=== PATIENT | male | born 1940 | race Caucasian/White ===

== ENCOUNTER → 2023-12-07 13:55 | Outpatient (REF) | payer MEDICARE, OTHER, SELFPAY | LOC: RCS 13:55 | PROVIDERS: ATTENDING PHYSICIAN Nuclear Medicine Nuclear Cardiology; FAMILY PHYSICIAN Family Medicine | DX: I49.3 Ventricular premature depolarization (principal); R55 Syncope and collapse | CPT/HCPCS: 93306 ==

== ENCOUNTER 2024-10-30 16:34 | Day surgery (SDC) | payer MEDICARE, OTHER, SELFPAY ==
[2024-10-30] VITALS (11 sets, daily range): BP systolic 166–194; BP diastolic 64–100; BMI 29.8
--- NOTE | 2024-10-30 15:33 | CON.CAR ---
Addendum entered and electronically signed by Ruddy Leone MD 10/30/24 15:54:
Patient seen, interviewed and examined by me.
I met with the patient and his .
He has been describing several months of progressively worsened fatigue. 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
correlating to his symptoms. He has no reversible cause for his symptomatic heart block.
Well-appearing, no acute distress while lying in stretcher in the emergency department
Bradycardic, regular rate and rhythm with normal S1 and S2, no S3 no S4. There is a grade 1/6 apical holosystolic murmur and no rubs. PMI is normally placed.
Lungs are clear to auscultation bilaterally without wheezes rales or rhonchi.
Abdomen soft nontender nondistended with normoactive bowel sounds
Extremities show trace pretibial edema bilaterally no clubbing or cyanosis.
Neurologic exam is grossly nonfocal.
Echo 12/07/2023: EF 60 to 65%, mild concentric LVH, trace TR, PAP 32 mmHg
ECG from today demonstrates sinus rhythm with type second-degree AV block and 2-1 AV conduction with a ventricular rate of 44 bpm
He has symptomatic high-grade AV block in the form of second-degree as well as third-degree (complete) heart block with no reversible cause.
I recommended implantation of dual-chamber permanent pacemaker
He is right-handed so I recommended implantation on the nondominant side, the left
I explained the procedure in detail including possible risks and expected postprocedural course and the expected lifestyle/activity restrictions
All of his questions and his 's questions have been answered. Informed consent obtained by me.
Original Note:
Consultation
Consultation Request
Date/Time Consultation Performed: 10/30/24
Performing Provider: Omaira Barnett PA-C for Dr. Harsh Leone
Reason for Consultation: complete heart block
Medical History
-
Chief Complaint: complete heart block
History of Present Illness:
Patient is an 83 yo M with PMH hypertension, hyperlipidemia, history of syncope who was referred to see cardiology by PCP due to 3 to 4 months of noting low heart rates. EKG in the office on 10/28 showed Mobitz type II heart block with heart rate of
40. He reports associated fatigue. He denies shortness of breath, chest pain, lightheadedness or syncope. A rhythm star monitor was placed at office visit 10/28 and we received notification that patient was having complete heart block and therefore
was referred to the ER for admission and pacemaker placement. He reports he last ate around 11 AM. He is not on blood thinners, just takes a baby aspirin. At his office visit 10/28 Nebivolol was stopped and his outpatient amlodipine was increased.
PMH:
HTN
HLD
History of syncope
Past Medical History
Past Medical History: Other (in HPI)
Social History
Tobacco: Non-Smoker
Alcohol: None
Personal:
Living: With Family
Employment: Retired
Family History
Family History: Reviewed & Not Pertinent
Allergies / Home Medications
Allergy/AdvReac Type Severity Reaction Status Date / Time
No Known Allergies Allergy Verified 10/30/24 15:21
Review of Systems
-
History Source: Patient and Family
All other systems: Negative unless noted
Physical Exam
Vital Signs
Temp Pulse Resp BP Pulse Ox
98.6 F 44 15 168/64 97
10/30/24 14:46 10/30/24 15:15 10/30/24 15:15 10/30/24 15:13 10/30/24 15:15
Physical Exam
General: No Apparent Distress and Comfortable
HEENT: Normocephalic, Anicteric and Moist Mucous Membranes
Respiratory: Clear and Non Labored Respirations
Cardiac: S1/S2, Regular Rhythm and Other (bradycardic)
GI: Soft, Non Tender, Non Distended and Normal Bowel Sounds
Musculoskeletal: No Clubbing, No Cyanosis and Edema (1+ of B/L LE)
Skin: Warm and Dry
Neuro: AO x 3
Impression / Plan
-
Primary Scrap Picker: Dr. Orellana
Assessment:
Fatigue
CHB on rhythm star monitor
Bradycardia for last 3 to 4 months
HTN
HLD
History of syncope
Echo 12/07/2023: EF 60 to 65%, mild concentric LVH, trace TR, PAP 32 mmHg
Plan:
- Patient presents to ER upon referral from cardiology office after noted to have complete heart block on rhythmstar monitor placed on 10/28/2024
- EKG on arrival to ER with complete heart block
- Awaiting labs
- Last ate around 11 AM
- Not on AV mary blocking agents, Nebivolol stopped 10/28 at office visit
- Last echo from 2023 as above
- Plan for pacemaker today if lab can accommodate
- Discussed procedure with patient and at bedside
- Discussed with nursing
Data Reviewed
-
EKG: Tracing Personally Visualized and interpreted
Medical Tests (Nuc Med, Echo etc): Report Reviewed by me
Labs: Labs Reviewed by me
Old Records: Reviewed
--- NOTE | 2024-10-30 15:41 | ED.GENMED ---
History of Present Illness
General
Chief Complaint: Heart Rate Problem
Source: patient and spouse
Time Seen by Provider: 10/30/24 15:19
History of Present Illness
History of Present Illness:
This patient is an 83-year-old male who presents emergency department because he was advised to by his bariatric nurse and told he is going to get a pacemaker. Patient states that in July 10 saw his primary he was noted to be bradycardic. He has had
repeat visited to his primary in regards to this bradycardia and after medication changes was noted to still be bradycardic which prompted his consultation to cardiology. He states that he had a monitor placed 2 days ago and today was contacted by
the office and referred to the ER. Patient states he feels 'fine'. His only symptom is that if he leans forward and then stands up he will get briefly lightheaded. He denies chest pain, dyspnea, fever, chills, nausea, vomiting, back pain, neck
pain, headache, onmz-qmz-[id number] medications, new medications, or other complaints. 1 other symptom patient does report for the last few months is the occasional sensation of 'hot flashes' lasting less than a minute or 2 without associated symptoms.
Past History
Past History
ED Past Medical History: HTN and Hypercholesterolemia
ED Past Surgical History: Appendectomy
Social History
Tobacco: Non-smoker
Alcohol: Occasional
Drug: None
Personal:
Living: with family
Employment: Retired
Family History
Family History: Negative Other (Noncontributory)
Phy Exam
Physical Exam
Physical Exam:
GENERAL: Alert , in no apparent distress
EYE: pupils equal and reactive
NECK: Supple, no significant adenopathy.
ENT: o/p clr, mmm.
CARDIAC: Regular rate and rhythm .
LUNGS: Clear breath sounds bilaterally, no acute respiratory distress, no wheezes/rales/rhonchi
ABDOMEN: Soft, without focal tenderness, no r/g, no cvat
NEUROLOGICAL: Alert and oriented, no focal neuro deficits
SKIN: Warm and dry, skin intact.
MUSCULOSKELETAL: No edema, well perfused.
PSYCH: Normal and appropriate interaction.
Course
Orders/Labs/Results
Orders:
Orders
10/30/24 14:45
EKG [Electrocardiogram (*1)] Urgent
Reason for Study: Bradycardia / Tachycardia
EKG- Treatment ONCE
10/30/24 15:29
Fentanyl Citrate/Pf [Sublimaze] 25 mcg IV [id number] PRN
HYDROmorphone [Dilaudid] 0.25 mg IV [id number] PRN
HYDROmorphone [Dilaudid] 0.5 mg IV PACU-Q5MPRN PRN
Ondansetron Injectable [Zofran] 4 mg IV PACU-ONCEPRN PRN
Prochlorperazine [Compazine] 5 mg IV PACU-ONCEPRN PRN
Notify MD As Directed
Notify physician if: for SDS patients with known or suspected sleep obstructive sleep apnea, monitor in the
PACU.
Notify MD for any apneic/desaturation episodes
O2 Therapy [RESP] Urgent
Titrate/Wean O2 to maintain O2 sat greater than (%): 92
Special Instructions: -Provide supplemental oxygen to achieve O2 sat of 92% or greater.
-After 15 min, may wean O2 and discontinue if patient is able to maintain O2 sat of 92%
or greater during recovery period.
If patient is a discharge home, without oxygen therapy, notify anestheiologist if
unable to maintain O2 SAT of 92% or greater on room air for MD clearance.
10/30/24 15:30
Normosol (Mult Electrolytes) [Normosol-R/Plasmalyte-A] 1,000 ml IV PER PROTOCOL
10/30/24 15:38
Fentanyl Citrate/Pf [Sublimaze] 100 mcg .ROUTE .STK-MED ONE
Midazolam HCl [Versed] 2 mg .ROUTE .STK-MED ONE
10/30/24 15:39
CeFAZolin 1 GRAM [Ancef] 1 gram 0.9% Sod Chloride 250 ml Irr [Nss Irrigation Bottle] 250 ml IRRIG CATH
CeFAZolin 2 GRAM [Ancef] 2 grams in 10 ml IV CATH
10/30/24 15:41
Basic Metabolic Panel Urgent
Complete Blood Count/With Diff Urgent
TSH Urgent
Vital Signs
Initial and Last Documented VS:
Initial Vital Signs
Temp Pulse Resp BP Pulse Ox
98.6 F 44 16 184/77 96
10/30/24 14:46 10/30/24 14:46 10/30/24 14:46 10/30/24 14:46 10/30/24 14:46
Last Documented Vital Signs
Temp Pulse Resp BP Pulse Ox
98.6 F 44 15 168/64 97
10/30/24 14:46 10/30/24 15:15 10/30/24 15:15 10/30/24 15:13 10/30/24 15:15
*Pulse Oximetry
SaO2: 97
Oxygen Mode of Delivery: Room air
Update Note
Update Note:
Patient presents to the Emergency Department with ____reported bradycardia
Number and Complexity of Problems Addressed at the Encounter
� Chronic conditions affecting care:
� Acute Exacerbation and/or Progression of Chronic Illness:
� Differential Diagnosis includes: But not limited to medication related effects, hypothyroidism, electrolyte disorder, heart block, etc. etc.
Amount and/or Complexity of Data to be Reviewed and Analyzed
� I performed an independent evaluation of and my interpretation is:
EKG:read by me, 3rd degree heart block with narrow qrs, no acdute ischemia
CT:
Xrays:
Laboratory Studies:
Other:
� Review of other/old records reveals:
� Clinical information was obtained by an independent historian:
� Prescriptions/Medications Considered but not given:
� Further testing considered but not performed:
Risk of Complications and/or Morbidity or Mortality of Patient Management
� Social determinants of health affecting care:
� Discussion with other providers (PCP, Hospitalists, Consultants, etc):
� Escalation of care including admission/observation vs risk of discharge considered: 3:44 PM patient has been seen by cardiology in consultation and plans are for patient to proceed to the catheterization lab for pacer placement
EARLE. Patient remains asymptomatic with stable blood pressure. Will observe closely
ED Attending Note
-
Portions of this chart may have been created with voice recognition software.� Occasional wrong word or��sound alike� substitutions may have occurred due to the inherent limitations of voice recognition software.
Discharge Plan
Departure
Patient Disposition: PORT PATROL OFFICER
Date of Disposition: 10/30/24
Time of Disposition: 15:44
Admit to: CV[facility] and electrical laboratory technician
Admit to doctor: braydon
Referrals:
Shari Arce MD [Family Provider, Family Practice]
Interventions
Interventions:
*Risk Screen - Suicide Last Done: 10/30/24 14:46
*General Assessment Last Done: 10/30/24 15:38
*Neglect/Abuse Screening Last Done: 10/30/24 14:46
*ED- Fall Risk Assessment Last Done: 10/30/24 15:38
*ED COVID-19 Vaccine History Last Done: 10/30/24 15:38
Discharge Date and Time
Print Language: CHINESE
[2024-10-30 15:57] LABS: Hematocrit 45.5 % (39.0-52.0); Hemoglobin 15.4 g/dL (13.0-18.0); Mean Corp Hgb Conc. 33.8 g/dL (33.0-37.0); Mean Corpuscular Volume 87.5 fL (80.0-94.0); Nucleated Red Blood Cells % 0 % (-); Platelet Count 207 10^3/uL (130-400); Red Cell Dist. Width 14.1 % (11.5-14.5)
--- NOTE | 2024-10-30 16:00 | ITS.CL.PACE ---
Property Manager - Pacemaker Implant
Pacemaker Implant
Procedure Report:
PACEMAKER IMPLANT REPORT
Primary Care Provider: Dr Shari Arce
Primary carbon paper coating machine setter: Dr Bari Orellana
Date of Procedure: October 30, 2024
Procedure:
Implantation of dual-chamber permanent pacemaker utilizing the left bundle branch for conduction system pacing
Indication/Diagnosis:
Non-reversible symptomatic (progressive fatigue) bradycardia due to second degree and third degree atrioventricular block
After informed consent was obtained, 'time out' was called and confirmed, the patient was prepped and draped in a sterile fashion. Lidocaine with epi was used for local anesthesia. Central venous access was obtained via subclavian venipuncture. An
incision was made along the left chest and a pre-pectoral pocket was formed. Using a Seldinger technique and peel-away sheaths, the pacing leads were placed under fluoroscopic guidance.
Fluoroscopy was used to determine likely anatomic site for left bundle branch pacing. The TapFundertronic C315 sheath was used to deliver the Medtronic 3830 Selectsecure pacing lead with the helix exposed just exposed from the sheath tip during continuous
monitoring when pacemapping the septum during gentle clockwise rotation to obtain a paced QRS morphology of a W pattern in lead V1. Once the suspected optimal site was identified, lead deployment was performed with several rapid rotations as paced
QRS morphology was intermittently monitored until a paced QRS complex in lead V1 demonstrated development of an R wave [ ] (qR or rSR).
Unipolar pacing impedance dropped by approximately 100 ohms suggesting it had reached the left ventricular subendocardial.
Stable VEgm injury current is present throughout final lead position including at end of case, suggesting there was no perforation through the septum into the LV cavity.
Unipolar pacing impedance is 1000 Ohms
Unipolar pacing threshold is stable at 1 V @ 0.4 ms.
Final conduction system paced QRS complex duration is 120 ms
LVAT is 93 ms and peak V5 -> peak V1 timing is 40 ms
There is QRS transition to LVSP / selective LBBP during threshold testing
Right atrial lead was placed at the RAA.
Once testing (see below) showed adequate and stable function, the leads were secured using the suture sleeves. The pocket was liberally irrigated with antibiotic solution. The leads were connected to the generator header and the leads and
generator were placed within the pocket. Fluoroscopy confirmed stable lead position. The pocket was closed in the typical fashion.
IMPLANTS:
Medtronic [id number], SN: [id number], Left Pectoral
RA: Medtronic 5076-45, SN: [id number], RAA
Left Bundle: Medtronic 3830 , SN:[id number], Interventricular septum at LBB
DEVICE TESTING:
Sensing: RA 2.3 mV, RV 9 mV
Capture: RA 0.7 V@0.4ms, RV 0.5 V@0.4ms (bipolar)
Ohms: RA 722, RV 694 (bipolar)
FINAL PROGRAMMING
Nicola Pacing: DDDR 60-130 ppm
COMPLICATIONS:
None
CONCLUSIONS:
1: Successful implant of dual chamber permanent pacemaker utilizing Left Bundle Branch conduction system capture for ventricular resynchronization pacing.
RECOMMENDATIONS:
1. Post-op care (tele, CXR, IV abx)
2. In-Office wound check in 5-7 days
Copy to:
Dr Shari Arce
Dr Bari Orellana
[2024-10-30 16:12] LABS: Blood Urea Nitrogen 22 mg/dl (9-20); Calcium 9.0 mg/dl (8.4-10.2); Carbon Dioxide 27 mmol/L (22-30); Chloride 110 mmol/L (98-107); Estimated Creatinine Clearance 64 ml/min; Glucose 116 mg/dl (70-99); Potassium 4.7 mmol/L (3.5-5.1); Sodium 144 mmol/L (135-145); eGFR > 60.00
[2024-10-30 16:42] LABS: TSH 2.09 uIU/ml (0.47-4.68)
--- NOTE | 2024-10-30 19:22 | PTCARENOTE ---
Patient admitted from PACU at 1800 after PPM implant. Pressure dressing is dry and intact left upper chest, with immobilizer in place. Patient had to urgently urinate upon admission to the floor and assisted with the urinal. BP elevated and patient
flustered with urge to void. Passed 250ml clear yellow urine. Monitoring VS, post EKG done and admission assessment completed. Patient's at the bedside, call hernández in reach.
[2024-10-30] MEDS: NORVASC 5 MG PO (19:53)
[2024-10-30] MEDS: ANCEF 5 IV (20:39)
[2024-10-30] MEDS: TYLENOL 650 MG PO (20:39)
[2024-10-31 03:40] VITALS: BP 178/78
[2024-10-31 03:42] VITALS: BP 187/72
[2024-10-31] MEDS: NORCO 5/325 1 TABLET PO (03:44)
[2024-10-31 04:09] LABS: Hematocrit 45.1 % (39.0-52.0); Hemoglobin 15.6 g/dL (13.0-18.0); Mean Corp Hgb Conc. 34.6 g/dL (33.0-37.0); Mean Corpuscular Volume 87.2 fL (80.0-94.0); Platelet Count 186 10^3/uL (130-400); Red Cell Dist. Width 13.8 % (11.5-14.5)
[2024-10-31 04:34] LABS: Blood Urea Nitrogen 15 mg/dl (9-20); Calcium 8.8 mg/dl (8.4-10.2); Carbon Dioxide 22 mmol/L (22-30); Chloride 111 mmol/L (98-107); Estimated Creatinine Clearance 83 ml/min; Glucose 115 mg/dl (70-99); Magnesium 2.2 mg/dl (1.6-2.3); Potassium 3.6 mmol/L (3.5-5.1); Sodium 140 mmol/L (135-145); eGFR > 60.00
--- NOTE | 2024-10-31 04:35 | PTCARENOTE ---
Pt AV paced on monitor, c/o surgical site left chest mild pain. PRN meds given. Dsg CDI. Pt ambulates with assist x 1.
[2024-10-31] MEDS: ANCEF 5 IV (05:14)
[2024-10-31 05:22] VITALS: BMI 29.5
[2024-10-31 07:49] VITALS: BP 180/75
[2024-10-31] MEDS: NORVASC 5 MG PO (08:27)
[2024-10-31] MEDS: ORETIC 25 MG PO (08:27)
[2024-10-31] MEDS: ZESTRIL 40 MG PO (08:27)
[2024-10-31] MEDS: PRAVACHOL 40 MG PO (08:27)
[2024-10-31] MEDS: ASPIR LOW (ENTERIC COATED) 81 MG PO (08:27)
--- NOTE | 2024-10-31 09:22 | CM ---
Reviewed chart. Met with Mr. Alexis to review discharge plans. He states prior to admission he resides with his spouse in a one story home with five steps. He states prior to admission he was independent with ambulation and adls. He state he
does not have any DME in the home. He states his spouse uses a walker. He states he has a prescription plan with [employer] and some times uses [facility]. The discharge plan is to return home with his spouse when medically stable.
--- NOTE | 2024-10-31 09:50 | W.PN.CARDCBS ---
Today's Communication / Plan
-
post DC PPM
BP elevated, resume home meds, will keep log and bring to inc check apt
home today
Impression / Plan
-
Primary care physician: Shari Arce MD
Primary Underwriter Mortgage Loan: Dr. Orellana
Assessment:
Fatigue
CHB on rhythm star monitor
Bradycardia for last 3 to 4 months
HTN
HLD
History of syncope
Echo 12/07/2023: EF 60 to 65%, mild concentric LVH, trace TR, PAP 32 mmHg
Plan:
Post DC PPM Medtronic 10/31/24
tele AsVpaced
CXR no PTX, leads in good position
site stable
BP elevated, continue HCTZ, lisinopril and amlodipine, will monitor at home and bring log to f/u apt
He may need another BP agent added for better BP control
Limit use of celebrex for next week to prevent pocket HT
Activity restrictions reviewed
Incision check 1 week
home today
Progress Note - Underwriter Mortgage Loan
Subjective
Date of Service: October 31, 2024
mild inc pain, no sob
Objective
Labs:
10/31/24 03:49
10/31/24 03:49
Labs
Hgb 15.6 g/dL (13.0-18.0) 10/31/24 03:49
Hct 45.1 % (39.0-52.0) 10/31/24 03:49
Plt Count 186 10^3/uL (130-400) 10/31/24 03:49
Sodium 140 mmol/L (135-145) 10/31/24 03:49
Potassium 3.6 mmol/L (3.5-5.1) 10/31/24 03:49
BUN 15 mg/dl (9-20) 10/31/24 03:49
Creatinine 0.7 mg/dL (0.7-1.3) 10/31/24 03:49
Glucose 115 mg/dl (70-99) H 10/31/24 03:49
Vital Signs and I&O:
Vital Signs
Temp Pulse Resp BP Pulse Ox
98.5 F 72 18 180/75 98
10/31/24 07:46 10/31/24 08:15 10/31/24 07:46 10/31/24 07:49 10/31/24 07:46
Vital Signs
Temp Pulse Resp BP Pulse Ox
98.5 F 72 18 180/75 98
10/31/24 07:46 10/31/24 08:15 10/31/24 07:46 10/31/24 07:49 10/31/24 07:46
Intake & Output
10/29/24 10/30/24 10/31/24 11/01/24
06:59 06:59 06:59 06:59
Intake Total 200 / 200
Output Total 1100 / 1100
Balance -900 / -900
Physical Exam
Physical Exam
NAD, AOX3
S1, s2, RRR
CTAB, non labored, no wheeze
SNTND bsx4
L CW site small area marked drainge, no HT
--- NOTE | 2024-10-31 09:56 | PTCARENOTE ---
Assisted the patient oob to the bathroom this morning. Small amount of drainage on aquacel left upper chest. Patient seen by cardiology. BP elevated this morning, AM medications administered and patient now sitting oob in the chair, will re-evaluate
BP.
[2024-10-31 11:11] VITALS: BP 162/72
[2024-10-31] MEDS: PREVNAR 20 0.5 ML IM (11:44)
--- NOTE | 2024-10-31 11:50 | W.DS.TRANS ---
DC Summary - Public Health Officer
-
Discharge Instructions:
Discharge Diagnosis/Procedures Pacemaker implant
Diet Low Cholesterol
Driving Restrictions No driving for 1 week
Bathing Restrictions OK to Shower
Instructions:
Stand-Alone Forms: DC Inst - Implanted Device
Changes to Home Medications: No
Discharge Medications:
DC Medications w/original date entered in [employer]
Prevagan 1 cap PO DAILY 10/30/24
amlodipine 5 mg tablet (Norvasc) 5 mg PO BID 10/30/24
aspirin 81 mg tablet,delayed release 81 mg PO DAILY 10/30/24
celecoxib 200 mg capsule (Celebrex) 200 mg PO BIDPRN PRN moderate pains 10/30/24
hydrochlorothiazide 25 mg tablet 25 mg PO DAILY 10/30/24
hydrocodone 5 mg-acetaminophen 325 mg tablet 1 tab PO BIDPRN PRN severe pains 10/30/24
lisinopril 40 mg tablet 40 mg PO DAILY 10/30/24
pravastatin 40 mg tablet 40 mg PO DAILY 10/30/24
Home Medication Changes
Pending Results: No
--- NOTE | 2024-10-31 12:08 | PTCARENOTE ---
Reviewed discharge instructions with the patient and follow up appointments and he states his understanding. patient is aware that he should keep a log of his BP and bring it to his follow up appointment. BP 162/72 at discharge, discharged home
with his and nephew.
== END 2024-10-31 12:22 | disposition home or self-care (01) ==
LOC: CATH 16:34
PROVIDERS: Nurse Practitioner Adult Health; ATTENDING PHYSICIAN Internal Medicine Cardiovascular Disease; EMERGENCY PHYSICIAN Emergency Medicine; FAMILY PHYSICIAN Family Medicine
DX: I44.2 Atrioventricular block, complete (principal); I11.9 Hypertensive heart disease without heart failure; E78.00 Pure hypercholesterolemia, unspecified; R55 Syncope and collapse; R00.1 Bradycardia, unspecified; Z79.899 Other long term (current) drug therapy; R53.83 Other fatigue; Z79.82 Long term (current) use of aspirin
CPT/HCPCS: 33208; C1887; 71045; 80048; 83735; 84443; 85025; 85027; 90677; 93005; 99284; C1769; C1785; C1892; C1898; G0009

== ENCOUNTER 2024-12-26 12:33 | Emergency (ER) | payer MEDICARE, OTHER, SELFPAY ==
[2024-12-26 12:36] VITALS: BP 193/85
[2024-12-26 12:52] VITALS: BMI 32.4
--- NOTE | 2024-12-26 13:06 | ED.GENMED ---
History of Present Illness
General
Chief Complaint: DVT/Possible Blood Clot
Source: patient and records
Exam Limitations: none
Time Seen by Provider: 12/26/24 12:57
History of Present Illness
History of Present Illness:
84yo right hand dominant male with a history of pacemaker placement on 10/31/24 for complete heart block presenting for evaluation of an abnormal outpatient ultrasound. Patient has been experiencing swelling and pain in his left arm for the past 2
weeks or so. Swelling started in the forearm. He was initially started on antibiotics for concern for infection. The swelling started to move more proximally and he was seen by his PCP 2 days ago. He was sent for a venous duplex which he
completed today at [facility]. Ultrasound revealed 'nonocclusive thrombus in the left subclavian, axillary, and basilic vein.' He was sent to the ED for evaluation. He is otherwise asymptomatic and denies any chest pain or shortness of breath. His
only blood thinner is a baby aspirin.
Past History
Past History
ED Past Medical History: HTN and Hypercholesterolemia
ED Past Surgical History: Appendectomy
Social History
Tobacco: Non-smoker
Alcohol: Occasional
Drug: None
Personal:
Living: with family
Employment: Retired
Family History
Family History: Negative Other (Noncontributory)
Phy Exam
General Physical Exam
General Presentation: well appearing and no apparent distress
General Skin: warm and dry
General Habitus: normal
General Mental: alert
ENT Exam
ENT Exam: normocephalic
Pulmonary Exam
Pulmonary Exam: no respiratory distress
Neurological Exam
Neurological Exam: alert
Darleen Coma Scale
Eye Opening: Spontaneous
Verbal Response: Oriented
Motor Response: Obeys Commands
GCS Total Score: 15
Musculoskeletal Exam
Musculoskeletal Exam: other (Mild swelling noted in LUE. No skin changes. 2+ radial pulse.)
Skin Exam
Skin Exam: normal color and warm/dry
Psychiatric Exam
Psychiatric Exam: normal mood/affect
Course
Orders/Labs/Results
Orders:
Orders
12/26/24 13:21
Basic Metabolic Panel Urgent
Complete Blood Count/With Diff Urgent
PTT Urgent
Prothrombin Time Urgent
12/26/24 14:09
Case Management Consult ONCE
Case Management Consult: Discharge Planning
12/26/24 15:16
Apixaban [Eliquis] 10 mg PO ONCE ONE
Abnormal Lab Results
12/26/24
13:21
Absolute Neuts (auto) 6.7 H 10^3/uL
(1.4-6.5)
Lymphocytes % 16.8 L %
(20.5-51.1)
PT 14.7 H Sec
(11.4-14.6)
Chloride 109 H mmol/L
(98-107)
BUN 22 H mg/dl
(9-20)
Glucose 108 H mg/dl
(70-99)
12/26/24 13:21
12/26/24 13:21
Vital Signs
Initial and Last Documented VS:
Initial Vital Signs
Temp Pulse Resp BP Pulse Ox
97.5 F 79 18 193/85 98
12/26/24 12:36 12/26/24 12:36 12/26/24 12:36 12/26/24 12:36 12/26/24 12:36
Last Documented Vital Signs
Temp Pulse Resp BP Pulse Ox
97.5 F 70 18 138/71 99
12/26/24 12:36 12/26/24 15:27 12/26/24 15:27 12/26/24 15:27 12/26/24 13:09
MDM/Problems Addressed
Differential Diagnosis Includes:
84yoM sent to the ED for a positive outpatient venous duplex. Has been having L arm swelling/pain x 1-2 weeks. US showed nonocclusive thrombus in subclavian, axillary, and brachial veins. Hx of pacemaker placement 2 months ago. He is hypertensive
with otherwise stable vitals.
Labs obtained and hemoglobin and renal function are normal. He denies any history of bleeding or falls. No contraindication for anticoagulation. He was given a prescription for the Eliquis starter pack. Case management consulted for pricing/coupons.
He was advised to f/u with his PCP and discussed that he will need treatment for 3-6 months. Strict ED return precautions reviewed. Patient and in agreement with plan and he was discharged in stable condition.
*Pulse Oximetry
SaO2: 99
Oxygen Mode of Delivery: Room air
Patient hypoxic: no (98%)
*Critical Care Note
Total Time (30-74mins, 75-104mins- exclusive of procedures): Not Applicable
ED Attending Note
-
Portions of this chart may have been created with voice recognition software.� Occasional wrong word or��sound alike� substitutions may have occurred due to the inherent limitations of voice recognition software.
Discharge Plan
Departure
Patient Disposition: Home (Routine Discharge)
Date of Disposition: 12/26/24
Time of Disposition: 15:12
Patient with high blood pressure during this ER visit?: Yes
Discharge Problem:
Acute deep vein thrombosis (DVT) of left upper extremity
Instructions: Deep Vein Thrombosis (Blood Clots in the Legs) (DC), Apixaban
Prescriptions:
New
Eliquis DVT-PE Treat 30D Start 5 mg (74 tabs) tablets,dose pack
See Rx Instructions .ROUTE .COMPLEX Qty: 74 0RF
Rx Instructions:
orally per package directions
No Action
celecoxib [Celebrex] 200 mg Capsule
200 mg PO BIDPRN PRN (Reason: moderate pains)
pravastatin 40 mg Tablet
40 mg PO DAILY
hydrocodone-acetaminophen 5-325 mg Tablet
1 tab PO BIDPRN PRN (Reason: severe pains)
amlodipine [Norvasc] 5 mg Tablet
5 mg PO BID
aspirin 81 mg Tablet,Delayed Release (Dr/Ec)
81 mg PO DAILY
hydrochlorothiazide 25 mg Tablet
25 mg PO DAILY
lisinopril 40 mg Tablet
40 mg PO DAILY
Prevagan
1 cap PO DAILY
Referrals:
Shari Arce MD [Family Provider, Family Practice]
Activity Restrictions/Additional Instructions:
Take Eliquis (blood thinner) as prescribed.
Please follow-up with your family doctor next week. You will need to receive future refills from your family doctor.
Return to the ER with any worsening symptoms including chest pain, shortness of breath, rectal bleeding, or if you hit your head while on blood thinners.
Interventions
Interventions:
*Risk Screen - Suicide Last Done: 12/26/24 12:52
*General Assessment Last Done: 12/26/24 12:52
*Neglect/Abuse Screening Last Done: 12/26/24 12:52
*ED- Fall Risk Assessment Last Done: 12/26/24 12:52
*ED COVID-19 Vaccine History Last Done: 12/26/24 12:52
*Nursing Disposition Last Done: 12/26/24 15:27
ED- Cardiac Assessment Last Done: 12/26/24 12:53
ED- Pulmonary Assessment Last Done: 12/26/24 12:53
ED-Peripheral Vascular Assessment Last Done: 12/26/24 12:53
ED-Skin Assessment Last Done: 12/26/24 12:54
Discharge Date and Time
Print Language: GREENLANDIC
[2024-12-26 13:31] LABS: Hematocrit 43.6 % (39.0-52.0); Hemoglobin 14.9 g/dL (13.0-18.0); Mean Corp Hgb Conc. 34.2 g/dL (33.0-37.0); Mean Corpuscular Volume 86.3 fL (80.0-94.0); Nucleated Red Blood Cells % 0 % (-); Platelet Count 262 10^3/uL (130-400); Red Cell Dist. Width 13.7 % (11.5-14.5)
[2024-12-26 13:33] VITALS: BP 147/72
[2024-12-26 13:44] LABS: INR 1.12; PT 14.7 Sec (11.4-14.6)
[2024-12-26 13:45] LABS: APTT 34.6 Sec (23.4-35.0); Blood Urea Nitrogen 22 mg/dl (9-20); Calcium 9.4 mg/dl (8.4-10.2); Carbon Dioxide 25 mmol/L (22-30); Chloride 109 mmol/L (98-107); Estimated Creatinine Clearance 75 ml/min; Glucose 108 mg/dl (70-99); Potassium 4.1 mmol/L (3.5-5.1); Sodium 140 mmol/L (135-145); eGFR > 60.00
--- NOTE | 2024-12-26 14:27 | CM ---
I called [facility] to check the cost of Eliquis for pt. [facility] needs the prescription to check cost. Jaja sent script to [facility]. I will follow up with them shortly.
[2024-12-26] MEDS: ELIQUIS 10 MG PO (15:19)
[2024-12-26 15:24] VITALS: BP 138/71
[2024-12-26 15:27] VITALS: BP 138/71
--- NOTE | 2024-12-26 17:15 | CM ---
Received CM consult to obtain hendricks for Eliquis. I called [facility] who requested a prescription to run cost of Eliquis. Prescription sent. Per [facility], Eliquis will const $422.56 a month with insurance. I met with pt and his , informed
them of cost. 30 day free supply card given along with $10.00 copay card as pt's prescription insurance is through [employer] not Medicare. Pt agreeable to cost, had questions regarding length of treatment. I told him his PCP would decide how long he
needs treatment.
PCP: Shari Arce
Pharmacy: [facility] [place]
== END 2024-12-26 15:27 | disposition home or self-care (01) ==
LOC: EMR 12:33
PROVIDERS: Physician Assistant; EMERGENCY PHYSICIAN Student in an Organized Health Care Education/Training Program; FAMILY PHYSICIAN Family Medicine
DX: I82.622 Acute embolism and thrombosis of deep veins of left upper extremity (principal); I10 Essential (primary) hypertension; E78.00 Pure hypercholesterolemia, unspecified; Z95.0 Presence of cardiac pacemaker
CPT/HCPCS: 99284; 80048; 85025; 85610; 85730

== ENCOUNTER → 2025-03-10 15:03 | Outpatient (REF) | payer MEDICARE, OTHER, SELFPAY | LOC: RCS 15:03 | PROVIDERS: ATTENDING PHYSICIAN Nuclear Medicine Nuclear Cardiology; FAMILY PHYSICIAN Family Medicine | DX: R94.31 Abnormal electrocardiogram [ECG] [EKG] (principal); I44.2 Atrioventricular block, complete; Z95.0 Presence of cardiac pacemaker | CPT/HCPCS: 93306 ==

== ENCOUNTER → 2025-04-02 13:32 | Outpatient (REF) | payer MEDICARE, OTHER, SELFPAY | LOC: RAD 13:32 | PROVIDERS: ATTENDING PHYSICIAN Nuclear Medicine Nuclear Cardiology; FAMILY PHYSICIAN Family Medicine | DX: I82.622 Acute embolism and thrombosis of deep veins of left upper extremity (principal) | CPT/HCPCS: 93971 ==